=== PATIENT | male | born 1985 | race African-American/Black ===

== ENCOUNTER 2016-12-22 17:00 | Emergency (ER) | payer MEDICAID, OTHER ==
[2016-12-22] MEDS ORDERED: Ketorolac INJ* 30 MG/ML 1 ML VIAL IV ONE (17:47)
[2016-12-22] MEDS ORDERED: Ondansetron INJ* 2 MG/ML VIAL IV ONE (17:47)
[2016-12-22] MEDS ORDERED: NS 0.9% 1000 ML* 1,000 ML BOLUS ONE (17:47)
--- NOTE | 2016-12-22 17:53 | UC ---
Syncope/New Syncope HPI - HPI Summary HPI Summary: 31 yo male felt dizzy while in standing in classroom today. [place] cold and clammy and knew he was going to pass out. Tried to sit by missed chair as he went down. c/o mild right sided SUAREZ and shoulder pain nausea had diarrhea past 2 days no f/c started taking flagyl today - History Of Current Complaint Chief Complaint: UCDizziness Stated Complaint: PASSED OUT Time Seen by Provider: 12/22/16 17:19 Hx Obtained From: Patient Onset/Duration: Sudden Onset, Lasting Minutes - seconds Activity At Onset: At Rest Timing: Seconds Frequency: Episodes x___ - 1 Context: Witnessed Associated Head Trauma: Yes Pain Intensity: 6 - right shoulder Pain Scale Used: 0-10 Numeric Aggravating Factor(s): Nothing Alleviating Factor(s): Nothing Associated Signs And Symptoms: Positive: Diarrhea, Diaphoresis, Lightheadedness Related History: Similar Episode/Dx as - faint a few years ago - Allergies/Home Medications Allergies/Adverse Reactions: Allergies Allergy/AdvReac Type Severity Reaction Status Date / Time No Known Allergies Allergy Verified 03/27/15 23:11 Home Medications: Home Medications Metronidazole [Flagyl 375 mg cap] 12/22/16 [History] PMH/Surg Hx/FS Hx/Imm Hx Previously Healthy: Yes Respiratory History Of: Reports: Asthma - Surgical History Surgical History: None - Family History Known Family History: Positive: Cardiac Disease, Hypertension, Diabetes - Social History Alcohol Use: Occasionally Substance Use Type: Marijuana Smoking Status (MU): Current Every Day Smoker Review of Systems Constitutional: Negative Skin: Negative Eyes: Negative ENT: Negative Respiratory: Negative Cardiovascular: Negative Gastrointestinal: Diarrhea Genitourinary: Negative Motor: Negative Neurovascular: Negative Musculoskeletal: Negative Neurological: Weakness Psychological: Negative All Other Systems Reviewed And Are Negative: Yes Physical Exam Triage Information Reviewed: Yes Appearance: Well-Appearing, No Pain Distress, Well-Nourished Vital Signs: Initial Vital Signs Temp 99.3 F 12/22/16 17:15 Pulse 83 12/22/16 17:15 Resp 18 12/22/16 17:15 BP 114/66 12/22/16 17:15 Pulse Ox 97 12/22/16 17:15 Vital Signs Reviewed: Yes Eyes: Positive: Conjunctiva Clear ENT: Positive: Hearing grossly normal, Pharynx normal. Negative: Nasal congestion, Nasal drainage, Tonsillar exudate, Trismus, Muffled/hoarse voice Neck: Positive: Supple, Nontender, No Lymphadenopathy Respiratory: Positive: Lungs clear, Normal breath sounds, No respiratory distress, No accessory muscle use Cardiovascular: Positive: RRR, No Murmur, Pulses Normal Abdomen Description: Positive: Nontender, No Organomegaly, Soft. Negative: CVA Tenderness (R), CVA Tenderness (L) Bowel Sounds: Positive: Present Musculoskeletal: Positive: ROM Intact, No Edema Neurological: Positive: Alert Psychological Exam: Normal Skin Exam: Normal Re-Evaluation - Re-Evaluation First Eval Re-Evaluation Time: 19:03 Change: Improved Comment: WANTS TO GO HOME/MARKEDLY IMPROVED Syncope Course/Dx - Differential Dx/Diagnosis Provider Diagnoses: SYNCOPE. GASTROENTERITIS Discharge - Discharge Plan Condition: Stable Disposition: HOME Patient Education Materials: Syncope (ED) Forms: *School Release Referrals: No Primary Care Phys,NOPCP [Primary Care Provider] - Oli Montemayor MD [Medical Doctor] - If Needed Additional Instructions: RECHECK IN 4 DAYS IF NOT BETTER RETURN FOR NEW OR WORSENING SYMPTOMS BLOOD WORK PENDING
[2016-12-22] MEDS ORDERED: Ondansetron ODT TAB* 4 MG PO ONE (19:04)
[2016-12-22 19:18] VITALS: BP 104/61
[2016-12-23 10:47] LABS: Hematocrit 43 % (42-52); Hemoglobin 14.1 g/dl (14.0-18.0); Mean Corpuscular HGB Conc 33 g/dl (31-36); Mean Corpuscular Hemoglobin 31 pg (27-31); Mean Corpuscular Volume 94 fL (80-94); Mean Platelet Volume 10 um3 (7.4-10.4); Red Cell Distribution Width 13 % (10.5-15); White Blood Count 19.2 10^3/ul (3.5-10.8)
[2016-12-23 11:07] LABS: Add Diff/Slide Review? Slide Review Added; Calcium 9.5 mg/dL (8.6-10.3); Comments Flag Yes; EGFR African American 100.2 (>60); EGFR Non-African American 77.9 (>60); Potassium 4.7 mmol/L (3.5-5.0)
== END 2016-12-22 19:20 | disposition home or self-care (01) ==
LOC: UCEAST 17:00
DX: R55 Syncope and collapse (principal); K52.9 Noninfective gastroenteritis and colitis, unspecified; M25.519 Pain in unspecified shoulder; F17.210 Nicotine dependence, cigarettes, uncomplicated
CPT/HCPCS: 36415; 80048; 85025; 93005; 96360; 96361; 96374; 96375; 99212; A9270-GY; G0463; J1885; J2405

== ENCOUNTER 2017-09-07 16:21 | Emergency (ER) | payer OTHER ==
[2017-09-07 16:28] VITALS: BP 106/57
== END 2017-09-07 17:58 | disposition left against medical advice (07) ==
LOC: UCEAST 16:21
DX: Z53.21 Procedure and treatment not carried out due to patient leaving prior to being seen by health care provider (principal)

== ENCOUNTER 2018-03-21 19:37 | Emergency (ER) | payer OTHER ==
[2018-03-21] MEDS ORDERED: oxyCODONE/Acetamin 5/325 MG* TAB PO ONE (20:47)
[2018-03-21] MEDS ORDERED: Sulfamethox/Trimethoprim DS 800/160* TAB PO ONE (20:58)
--- NOTE | 2018-03-21 20:58 | ED ---
Skin Complaint - HPI Summary HPI Summary: 32-year-old male presents with right groin abscess for the past 2 weeks. He has never had an abscess before. Denies any history of MRSA. He denies any fevers. He denies any spreading redness. He said was waiting for it to pop but it never did. He states the pain is increasing gotten worse. He has been using ibuprofen for his pain. 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 He denies any other symptoms. - History of Current Complaint Chief Complaint: EDRashSkinAbscess Time Seen by Provider: 03/21/18 20:12 Stated Complaint: RT LEG ABSCESS Pain Intensity: 9 - Allergy/Home Medications Allergies/Adverse Reactions: Allergies Allergy/AdvReac Type Severity Reaction Status Date / Time No Known Allergies Allergy Verified 09/07/17 16:28 PMH/Surg Hx/FS Hx/Imm Hx Endocrine/Hematology History: Denies: Hx Diabetes, Hx Thyroid Disease Cardiovascular History: Denies: Hx Hypertension Respiratory History: Denies: Hx Asthma, Hx Chronic Obstructive Pulmonary Disease (COPD) GI History: Denies: Hx Ulcer Infectious Disease History: No Infectious Disease History: Denies: Hx Clostridium Difficile, Hx Hepatitis, Hx Human Immunodeficiency Virus (HIV), Hx of Known/Suspected MRSA, Hx Shingles, Hx Tuberculosis, Hx Known/ Suspected VRE, Hx Known/Suspected VRSA, History Other Infectious Disease, Traveled Outside the in Last 30 Days - Family History Known Family History: Positive: Cardiac Disease, Hypertension, Diabetes - Social History Alcohol Use: Occasionally Substance Use Type: Reports: Marijuana Smoking Status (MU): Current Every Day Smoker Review of Systems Negative: Fever Negative: Chest Pain Positive: Shortness Of Breath Positive: Other - groin abscess All Other Systems Reviewed And Are Negative: Yes Physical Exam Triage Information Reviewed: Yes Vital Signs On Initial Exam: Initial Vitals Temp Pulse Resp BP Pulse Ox 99.1 F 103 20 123/80 95 03/21/18 19:43 03/21/18 19:43 03/21/18 19:43 03/21/18 19:43 03/21/18 19:43 Vital Signs Reviewed: Yes Appearance: Positive: Well-Appearing Skin: Positive: Warm, Dry, Other - 3cm by 2cm abscess right groin Head/Face: Positive: Normal Head/Face Inspection Eyes: Positive: Normal, Conjunctiva Clear Respiratory/Lung Sounds: Positive: Clear to Auscultation, Breath Sounds Present Cardiovascular: Positive: Normal, RRR Abdomen Description: Positive: Nontender, Soft Bowel Sounds: Positive: Present Male Genital Exam: Positive: Normal Genitalia Musculoskeletal: Positive: Normal Neurological: Positive: Normal Psychiatric: Positive: Normal Procedures - Incision and Drainage Site: right groin Anesthesia: Local Instrument(s): Scalpel Diagnostics - Vital Signs Vital Signs Temp Pulse Resp BP Pulse Ox 03/21/18 20:55 20 03/21/18 19:43 99.1 F 103 20 123/80 95 - Laboratory Lab Statement: Any lab studies that have been ordered have been reviewed, and results considered in the medical decision making process. Course/Dx - Course Course Of Treatment: 32-year-old male presents with right groin abscess for the past 2 weeks. He has never had an abscess before. Denies any history of MRSA. He denies any fevers. He denies any spreading redness. He said was waiting for it to pop but it never did. He states the pain is increasing gotten worse. He has been using ibuprofen for his pain. 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 He denies any other symptoms. On exam has 2 cm by 3cm abscess right groin. I &D area. We will place and Bactrim. Patient understands agrees plan. - Differential Diagnoses - Skin Complaint Differential Diagnoses: Abscess, Cellulitis, Contact Dermatitis - Diagnoses Provider Diagnoses: Groin abscess Discharge - Sign-Out/Discharge Documenting (check all that apply): Discharge/Admit/Transfer - Discharge Plan Condition: Good Disposition: HOME Prescriptions: Sulfamethox/Trimethoprim DS* [Bactrim DS 800/160 TAB*] 1 tab PO BID #19 tab Patient Education Materials: Abscess (ED) Referrals: Oli Montemayor MD [Primary Care Provider] - Additional Instructions: Take antibiotic twice a day for 10 days, first dose given in ED Apply warm compresses to area Take ibuprofen or Tylenol for pain every 6 hours Return to ED if develop fever, area of redness spreads, or any new or worsening symptoms - Billing Disposition and Condition Condition: GOOD Disposition: HOME
[2018-03-22 00:29] VITALS: BP 121/70
== END 2018-03-21 21:55 | disposition home or self-care (01) ==
LOC: ED 19:37
DX: L02.214 Cutaneous abscess of groin (principal); R06.02 Shortness of breath; F17.210 Nicotine dependence, cigarettes, uncomplicated
CPT/HCPCS: 87070; 87076; 87205; 87640; 87641; 99282; A9270-GY

== ENCOUNTER 2018-05-17 16:17 | Emergency (ER) | payer OTHER ==
[2018-05-17 16:31] VITALS: BP 118/69
[2018-05-17] MEDS ORDERED: HYDROcodone/ACETAMIN 5-325 MG* 1 TAB PO ONE (16:34)
--- NOTE | 2018-05-17 17:27 | UC ---
Dental HPI - HPI Summary HPI Summary: Patient is a 32-year-old male with a history of left upper molar fractured tooth 1 year presenting to the with worsening pain to the left upper molar 2 days. Denies any fevers, sweats, chills. Denies any dental abscess. He states this happened in the past and he was given Keflex with good relief. Denies any dysphagia or odynophagia. Patient is otherwise healthy. - History of Current Complaint Hx Obtained From: Patient Onset/Duration: Gradual Onset Severity: Severe Pain Intensity: 10 Pain Scale Used: 0-10 Numeric <Rafia Ardon - Last Filed: 05/17/18 17:31> <Yadi Russell - Last Filed: 05/17/18 17:38> - History of Current Complaint Chief Complaint: UCDentalProblem Stated Complaint: TOOTH ACHE Time Seen by Provider: 05/17/18 16:25 - Allergies/Home Medications Allergies/Adverse Reactions: Allergies Allergy/AdvReac Type Severity Reaction Status Date / Time No Known Allergies Allergy Verified 05/17/18 16:31 PMH/Surg Hx/FS Hx/Imm Hx Previously Healthy: Yes - Surgical History Surgical History: None - Family History Known Family History: Positive: Cardiac Disease, Hypertension, Diabetes - Social History Occupation: Employed Full-time Lives: With Family Alcohol Use: Occasionally Substance Use Type: Marijuana Smoking Status (MU): Former Smoker <Rafia Ardon - Last Filed: 05/17/18 17:31> Review of Systems Constitutional: Negative Skin: Negative ENT: Dental Pain Respiratory: Negative Cardiovascular: Negative Motor: Negative Neurovascular: Negative Musculoskeletal: Negative Neurological: Negative Is Patient Immunocompromised?: No All Other Systems Reviewed And Are Negative: Yes <Rafia Ardon - Last Filed: 05/17/18 17:31> Physical Exam Triage Information Reviewed: Yes Appearance: Well-Appearing, No Pain Distress, Well-Nourished Vital Signs: Initial Vital Signs Temp 99.7 F 05/17/18 16:23 Pulse 81 05/17/18 16:23 Resp 20 05/17/18 16:23 BP 118/69 05/17/18 16:23 Pulse Ox 95 05/17/18 16:23 Vital Signs Reviewed: Yes Eye Exam: Normal Dental: Positive: Dental Fracture @ - left upper molar Neck exam: Normal Neck: Positive: Supple, No Lymphadenopathy Respiratory Exam: Normal Respiratory: Positive: Chest non-tender Musculoskeletal Exam: Normal Musculoskeletal: Positive: Strength Intact Neurological Exam: Normal Neurological: Positive: Alert Psychological: Positive: Normal Response To Family Skin Exam: Normal <Rafia Ardon - Last Filed: 05/17/18 17:31> Vital Signs: Initial Vital Signs Temp 99.7 F 05/17/18 16:23 Pulse 81 05/17/18 16:23 Resp 20 05/17/18 16:23 BP 118/69 05/17/18 16:23 Pulse Ox 95 05/17/18 16:23 <Yadi Russell - Last Filed: 05/17/18 17:38> Dental Complaint Course/Dx - Course Course Of Treatment: During the course of treatment, the patient is evaluated for a fractured left upper molar tooth which has been present 2 days. There is no evidence of abscess and no drainage from the area. No surrounding erythema or swelling. I will give a short course of pain medication for worsening symptoms and he will take penicillin - Differential Dx/Diagnosis Differential Diagnosis/Dx: Odontogenic Pain Provider Diagnoses: Dental Pain <Rafia Ardon - Last Filed: 05/17/18 17:31> Discharge - Sign-Out/Discharge Documenting (check all that apply): Discharge/Admit/Transfer - Billing Disposition and Condition Condition: STABLE Disposition: Home <Rafia Ardon Goldie - Last Filed: 05/17/18 17:31> - Billing Disposition and Condition Condition: STABLE Disposition: Home <Yadi Russell - Last Filed: 05/17/18 17:38> - Discharge Plan Condition: Stable Disposition: HOME Prescriptions: Penicillin VK 500 MG TAB(NF) [Penicillin VK 500 mg Tab(NF)] 500 mg PO TID #21 tab MDD 3 traMADol TAB* [Ultram*] 50 mg PO Q8H PRN #12 tab MDD 3 PRN Reason: Pain Patient Education Materials: Toothache (ED) Forms: *Work Release Referrals: Oli Montemayor MD [Primary Care Provider] - Additional Instructions: Tylenol 650mg three times daily Ibuprofen 600mg three times daily Take tramadol as needed for severe pain Keflex three times daily x 7 days Attestation Statement User Type: Provider - I was available for consult. This patient was seen by the ARIANE. The patient was not presented to, seen by, or examined by me. -Srinath <Yadi Russell - Last Filed: 05/17/18 17:38>
== END 2018-05-17 17:30 | disposition home or self-care (01) ==
LOC: UCEAST 16:17
DX: K08.89 Other specified disorders of teeth and supporting structures (principal); Z87.891 Personal history of nicotine dependence
CPT/HCPCS: 99212; G0463

== ENCOUNTER 2019-08-08 14:09 | Emergency (ER) | payer OTHER ==
[2019-08-08] MEDS ORDERED: Lidocaine 2.5%/Prilocain 2.5%* 5 GM TUBE TOPICAL ONE (16:43)
[2019-08-08] MEDS ORDERED: Morphine 4 MG/ML VIAL (1 ml) 4 MG/ML VIAL IV ONE (16:43)
--- NOTE | 2019-08-08 17:46 | ED ---
GI/ HPI - HPI Summary HPI Summary: This patient is a 33 year old M presenting to [facility] accompanied by female knitted goods shaper with a chief complaint of skin boil since 08/04/19. Patient states that he previously had the same boil drained back in 2018. Patient states that it started to grow back 4 days ago on 08/04/19. The patient rates the pain 9/10 in severity, sharp shooting pain near rectum. Symptoms aggravated by pressure. Symptoms alleviated by nothing. Patient reports EtOH use occasionally and marijuana use occasionally. Patient denies fever, dysuria, penile pain. Does report "bump" near R groin. Patient denies tobacco use. Allergies Allergy/AdvReac Type Severity Reaction Status Date / Time No Known Allergies Allergy Verified 08/08/19 14:11 Home Medications Medication Instructions Recorded Confirmed Type Ibuprofen TAB* [Motrin TAB* 800 MG] 800 mg PO Q6H 10 Days #30 tab 08/08/19 Rx Sulfamethox/Trimethoprim DS* 1 tab PO BID 7 Days #14 tab 08/08/19 Rx [Bactrim DS 800/160 TAB*] - History of Current Complaint Chief Complaint: EDUrogenitalProblems Time Seen by Provider: 08/08/19 16:22 Stated Complaint: GROIN PAIN FROM CYST MICAELA PER PT Hx Obtained From: Patient Onset/Duration: Started Days Ago, Still Present Timing: Constant Current Severity: Severe Pain Intensity: 9 Location of Pain: Anal Pain Characteristics: Sharp Associated Signs and Symptoms: Positive: Other: - negative of edema in area of boil. Negative: Fever, Dysuria - Allergy/Home Medications Allergies/Adverse Reactions: Allergies Allergy/AdvReac Type Severity Reaction Status Date / Time No Known Allergies Allergy Verified 08/08/19 14:11 PMH/Surg Hx/FS Hx/Imm Hx Endocrine/Hematology History: Denies: Hx Diabetes, Hx Thyroid Disease Cardiovascular History: Denies: Hx Hypertension Respiratory History: Denies: Hx Asthma, Hx Chronic Obstructive Pulmonary Disease (COPD) GI History: Denies: Hx Ulcer Infectious Disease History: No Infectious Disease History: Denies: Hx Clostridium Difficile, Hx Hepatitis, Hx Human Immunodeficiency Virus (HIV), Hx of Known/Suspected MRSA, Hx Shingles, Hx Tuberculosis, Hx Known/ Suspected VRE, Hx Known/Suspected VRSA, History Other Infectious Disease, Traveled Outside the [place] in Last 30 Days - Family History Known Family History: Positive: Cardiac Disease, Hypertension, Diabetes - Social History Alcohol Use: Occasionally Hx Substance Use: Yes Substance Use Type: Reports: Marijuana Hx Tobacco Use: Yes Smoking Status (MU): Former Smoker Review of Systems Negative: Fever Negative: burning, dysuria Negative: Edema - of boil area near rectum All Other Systems Reviewed And Are Negative: Yes Physical Exam - Summary Physical Exam Summary: Constitutional: Well-developed, Well-nourished, Alert. (-) Distressed Skin: Warm, Dry HENT: Normocephalic; Atraumatic Eyes: Conjunctiva normal Neck: Musculoskeletal ROM normal neck. (-) JVD, (-) Stridor, (-) Nuchal rigidity Cardio: Rhythm regular, rate normal, Heart sounds normal; Intact distal pulses; Radial pulses are 2+ and symmetric. (-) Murmur Pulmonary/Chest wall: Effort normal. (-) Respiratory distress, (-) Wheezes, (-) Rales Abd: Soft, (-) tenderness, (-) Distension, (-) Guarding, (-) Rebound : + R sided inguinal LAD, perinanal fluctuance R lateral to 12 oclock position of the anus. Musculoskeletal: (-) Edema Lymph: R inguinal LAD Neuro: Alert, Oriented x3 Psych: Mood and affect Normal Triage Information Reviewed: Yes Vital Signs On Initial Exam: Initial Vitals Temp Pulse Resp BP Pulse Ox 98.7 F 107 16 126/82 97 08/08/19 14:11 08/08/19 14:11 08/08/19 14:11 08/08/19 14:11 08/08/19 14:11 Vital Signs Reviewed: Yes Procedures - Incision and Drainage Right Buttocks Anesthesia: Topical, Local - 5 cc 1% lidocaine Instrument(s): Scalpel Packing: Other - no packing, moderate amount purulent drainage Diagnostics - Vital Signs Vital Signs Temp Pulse Resp BP Pulse Ox 08/08/19 17:07 18 08/08/19 14:11 98.7 F 107 16 126/82 97 - Laboratory Lab Statement: Any lab studies that have been ordered have been reviewed, and results considered in the medical decision making process. GIGU Course/Dx - Course Course Of Treatment: 33 y/o male w hx perianal abscess, no rectal/anal involvement, no systemic symptoms. - VS notable for mild tachycardia that resolved with pain control, afebrile. Given pain control, EMLA and lidocaine for anesthesia, and drainage performed moderate amount of drainage. Patient given Bactrim here and to go. Patient will follow-up with surgery for recurrent abscess - Diagnoses Provider Diagnoses: Perianal abscess Discharge ED - Sign-Out/Discharge Documenting (check all that apply): Patient Departure - discharge Patient Received Moderate/Deep Sedation with Procedure: No - Discharge Plan Condition: Stable Disposition: HOME Prescriptions: Ibuprofen TAB* [Motrin TAB* 800 MG] 800 mg PO Q6H 10 Days #30 tab Sulfamethox/Trimethoprim DS* [Bactrim DS 800/160 TAB*] 1 tab PO BID 7 Days #14 tab Patient Education Materials: Anorectal Abscess and Anal Fistula (ED) Referrals: Oli Montemayor MD [Primary Care Provider] - Additional Instructions: You were seen in the emergency department for an abscess. Bactrim twice a day for 7 days. You got a dose here. If any studies were not completed at the time of discharge you will be called with the relevant results. Please follow up with your primary care doctor in next 2-3 days and return to emergency department for worsening pain, fevers, drainage, or concerning symptoms. It was a pleasure taking care of you today. - Billing Disposition and Condition Condition: STABLE Disposition: Home - Attestation Statements Document Initiated by Dagoberto: Yes Documenting Scribe: Micki Washington Provider For Whom Dagoberto is Documenting (Include Credential): Dr. Ursula Chavarria MD Scribe Attestation: Micki Lovett scribed for Dr. Ursula Chavarria MD on 08/08/19 at 2200. Scribe Documentation Reviewed: Yes Provider Attestation: The documentation as recorded by the Micki travis accurately reflects the service I personally performed and the decisions made by me, Dr. Ursula Chavarria MD Status of Scribe Document: Viewed
[2019-08-08] MEDS ORDERED: Sulfamethox/Trimethoprim DS 800/160* TAB PO ONE ×2 (17:55→18:21)
[2019-08-08 19:26] VITALS: BP 116/87
== END 2019-08-08 19:23 | disposition home or self-care (01) ==
LOC: ED 14:09
DX: K61.0 Anal abscess (principal); Z87.891 Personal history of nicotine dependence
CPT/HCPCS: 46050; 96374; 99284; A9270-GY; J2270